=== PATIENT | male | born 1980 | race Caucasian/White ===

== ENCOUNTER → 2022-02-28 07:46 | Outpatient (CLI) | payer OTHER, SELFPAY ==
--- NOTE | ~2022-02-28 | MR_ITS ---
EXAMINATION: MR knee RT wo con DATE: 02/28/2022 08:54 INDICATION: Lateral right knee pain post injury TECHNIQUE: Magnetic resonance imaging (MRI) of the right knee was performed without intravenous contr ast. Sequences included coronal PD-weighted FSE, coronal PD-weighted FS FSE, sagittal T2-weighted FS E, sagittal PD-weighted FS FSE and axial PD weighted fat saturated FSE. COMPARISON: None. FINDINGS: Medial compartment: Medial meniscus is normal. Articular cartilage is normal. Lateral compartment: Lateral meniscus is normal. Chondral fissuring along the medial side of the lateral tibial plateau wi thout degenerative subchondral changes. Articular cartilage along the weightbearing lateral femoral c ondyle is normal. Patellofemoral compartment: Deep chondral fissuring at the cephalad half of the medial patellar facet and along the cephalad ravindra in of the apical ridge and lateral facet. Tiny foci of underlying subarticular edema-like signal garcia ge at the cephalad aspect of the apical ridge. Deep chondral fissuring with minimal underlying cortic al irregularity at the caudal aspect of the medial trochlea. Ligaments and tendons: Anterior and posterior cruciate ligaments are normal. The medial collateral ligament is normal. Mild increased signal within and surrounding the thickened fibular collateral ligament consistent with mod erate grade sprain/partial tear. The biceps femoris tendon is normal. The popliteus tendon and poplit eal fibular ligament are normal. The extensor mechanism is normal. The visualized medial hamstring te ndons as well as the iliotibial band are normal. Fluid: Physiologic amount of fluid in the joint space. No loose osteochondral bodies identified. Osseous/other: Bone alignment is normal. No fracture or pathologic marrow replacing process. IMPRESSION: 1. Moderate grade sprain/partial tear of the fibular collateral ligament which appears relatively rec ent with surrounding edema. 2. 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 Reviewed, dictated and finalized at location A. [employer] SUPERVISOR IMPRESSION: 1. Moderate grade sprain/partial tear of the fibular collateral ligament which appears relatively recent with surrounding edema. 2. Mild osteoarthritis with moderate grade chondral malacia along the lateral t ibial plateau and moderate to high-grade chondromalacia in the patellofemoral c ompartment.
== END ==
PROVIDERS: PCP Orthopaedic Surgery; Visit Provider Orthopaedic Surgery
DX: M17.11 Unilateral primary osteoarthritis, right knee (principal); S83.421A Sprain of lateral collateral ligament of right knee, initial encounter; X58.XXXA Exposure to other specified factors, initial encounter
CPT/HCPCS: 73721

== ENCOUNTER → 2022-07-06 11:27 | Outpatient (CLI) | payer OTHER, SELFPAY ==
--- NOTE | ~2022-07-06 | XR_ITS ---
EXAMINATION: XR fl inj shoulder LT - MR/CT DATE: 07/06/2022 12:32 INDICATION: Left shoulder pain TECHNIQUE: A time-out was performed to verify the patient's name, date of , and procedure to b e performed. The procedure including the risks, benefits, and alternatives was discussed with the pat ient. Risks discussed included bleeding and infection. The patient understood the risks and agreed to proceed. The skin overlying the rotator cuff interval of the left glenohumeral joint was prepped an d draped in usual sterile fashion. Anesthetic was administered with 1% lidocaine subcutaneously. A 22 G needle was advanced under fluoroscopic guidance into the joint. Injection of 2 mL of Omnipaque 240 confirmed intra-articular position of the needle. Subsequently, injectate consisting of 12 mL of 2:1:1 mixture of sterile saline:Omnipaque 240:1% lidocaine mixed 200:1 with 529 mg/mL Multihance ariella olinium contrast was injected with intra-articular administration confirmed by intermittent fluorosco py. The needle was removed and the entry site was cleaned and dressed. There were no immediate compl ications. Fluoroscopy exposure time was 0.4 minutes. The total number of images was 106. FINDINGS: Real-time fluoroscopy demonstrates the needle and contrast in the left glenohumeral joint. IMPRESSION: 1. Successful left glenohumeral joint injection of a dilute gadolinium contrast mixture for subsequen t MRI arthrogram which will be dictated separately. Reviewed, dictated and finalized at location B. IMPRESSION: 1. Successful left glenohumeral joint injection of a dilute gadolinium contrast mixture for subsequent MRI arthrogram which will be dictated separately.
--- NOTE | ~2022-07-06 | MR_ITS ---
EXAMINATION: MR shoulder LT w con DATE: 07/06/2022 13:10 INDICATION: Left shoulder joint pain TECHNIQUE: Magnetic resonance imaging (MRI) of the left shoulder was performed following intra-artic ular gadolinium contrast injection and without intravenous contrast. Details of the glenohumeral join t injection have been dictated separately. Sequences included axial fluid sensitive FSE STIR, axial T1-weighted FS FSE, coronal oblique T1-weighted FS FSE, coronal oblique T2-weighted FSE, sagittal T2- weighted FS FSE, sagittal T1-weighted FSE, and ABER (abduction external rotation) T1-weighted FS FSE. COMPARISON: None. FINDINGS: Coracoacromial arch: The acromion undersurface is curved in morphology (type II). The coracoacromial ligament is normal. M oderate acromioclavicular osteoarthritis with small inferiorly directed osteophytes at the lateral cl avicle. Rotator cuff: Mild subscapularis tendinopathy without tear. Moderate supraspinatus and mild infraspinatus tendinopa thy. There is a small full-thickness tear along the superior facet footplate of the supraspinatus ten don which measures 3 mm AP and 3 mm medial to lateral. There is more extensive intrasubstance contras t imbibition extending approximately 1.8 cm anteroposteriorly in the distal supraspinatus and anterio r infraspinatus tendons. Teres minor tendon is normal. Normal rotator cuff muscle bulk and signal. Biceps tendon, glenoid labrum and glenohumeral cartilage: Long head of the biceps tendon is normal. Contrast extends into and extensive labral tear involving a ll but a small portion of the anterior labrum. There are multiple small para labral cysts at the desirae phery of the inferior labrum 4:00 to the 7:00 position. Additional small para labral cyst at the 8:30 position. Glenohumeral cartilage is normal. Bones and other: Normal marrow signal with no edema, fracture or pathologic marrow replacing process. Moderate amount of contrast enhanced fluid in the subacromial/subdeltoid and subcoracoid bursae resulting from decomp ression of the injected joint fluid 5 the full-thickness supraspinatus tendon tear. IMPRESSION: 1. Moderate supraspinatus tendinopathy with very small full-thickness tear at the distal insertion. 2. Diffuse tearing of the glenoid labrum with a few small para labral cysts along the inferior and po sterior rim of the glenoid. 3. Moderate acromioclavicular osteoarthritis. Reviewed, dictated and finalized at location B. IMPRESSION: 1. Moderate supraspinatus tendinopathy with very small full-thickness tear at t he distal insertion. 2. Diffuse tearing of the glenoid labrum with a few small para labral cysts kamron ng the inferior and posterior rim of the glenoid. 3. Moderate acromioclavicular osteoarthritis.
== END ==
PROVIDERS: PCP Orthopaedic Surgery; Visit Provider Orthopaedic Surgery
DX: M75.82 Other shoulder lesions, left shoulder (principal); S43.432A Superior glenoid labrum lesion of left shoulder, initial encounter; M19.012 Primary osteoarthritis, left shoulder; X58.XXXA Exposure to other specified factors, initial encounter
CPT/HCPCS: 23350; 73222; A9577; Q9967